=== PATIENT | female | born 1930 | race Caucasian/White ===

== ENCOUNTER 2018-01-01 09:57 | Emergency (ER) | payer MEDICARE ==
[2018-01-01] MEDS ORDERED: Albuterol/Ipratropium NEB.SOL* Albuterol 2.5 MG/Ipratropium 0.5 MG 3 ML INH ONE (11:41)
--- NOTE | 2018-01-01 11:48 | UC ---
Respiratory Complaint HPI - HPI Summary HPI Summary: cough for about a week. She says she is on 3lnc all the time. She has not needed to increase it and says she may be a little more sob this week. she is on warfarin and is compliant with med and INR, this is for Afib. She had a stress test one year ago and sees automotive professional regularly. The cough is productive of white which is normal for her and no hemoptysis. There is some right calf swelling without pain. No fever, cp, jaw pain, shoulder pain or other ischemic equivalents. - History of Current Complaint Chief Complaint: UCRespiratory Stated Complaint: CONGESTION Time Seen by Provider: 01/01/18 10:42 Hx Obtained From: Patient, Family/Vascular Technologist - Estefany. ?: No Onset/Duration: Gradual Onset, Lasting Days Timing: Constant Severity Initially: Mild Severity Currently: Mild Pain Intensity: 0 Character: Cough: Productive Aggravating Factors: Deep Breaths, Recumbent Position Alleviating Factors: Upright Position, Spontaneous Resolution Associated Signs And Symptoms: Positive: Dyspnea, Calf Swelling, URI, Nasal Congestion. Negative: Fever, Chills, Pleuritic Chest Pain, Wheezing, Hemoptysis , Dizziness, Calf Pain - Allergies/Home Medications Allergies/Adverse Reactions: Allergies Allergy/AdvReac Type Severity Reaction Status Date / Time MS Nitroglycerin Allergy Severe Difficulty Verified 01/01/18 11:07 [Nitroglycerin] Breathing MS Kiwi Extract Allergy Intermediate Numbness Verified 01/01/18 11:07 [Kiwi Extract] And Tingling aspirin AdvReac can not Verified 01/01/18 11:08 take more than 81 mg aspirin due hx of GI bleed. Home Medications: Home Medications Albuterol 2.5MG/3ML (0.083%)* [Ventolin 2.5 MG/3 ML NEB.DERICK*] 2.5 mg INH Q4H [History Confirmed 01/01/18] Aspirin EC Low Dose* [Ecotrin EC Low Dose 81 MG*] 81 mg PO DAILY 01/01/18 [ History Confirmed 01/01/18] Atorvastatin* [Lipitor*] 40 mg PO DAILY 01/01/18 [History Confirmed 01/01/18] Calcium Carbonate/Vitamin D3 [Calcium 600 + Vit D Tablet] 1 each PO 01/01/18 [ History] Cholecalciferol (Vitamin D3) [ Vitamin D3] 1,000 unit PO DAILY 01/01/18 [ History Confirmed 01/01/18] Digoxin TAB* [Lanoxin TAB*] 0.125 mg PO DAILY 01/01/18 [History Confirmed ] Ferrous Sulfate TAB* 325 mg PO BID 01/01/18 [History Confirmed 01/01/18] Furosemide TAB* [Lasix TAB*] 40 mg PO DAILY 01/01/18 [History Confirmed 01/01/18 ] Gabapentin CAP(*) [Neurontin 100 mg CAP(*)] 100 mg PO BID 01/01/18 [History Confirmed 01/01/18] Gabapentin CAP(*) [Neurontin 100 mg CAP(*)] 300 mg PO BEDTIME 01/01/18 [History Confirmed 01/01/18] Magnesium Oxide [Magnesium] 1,000 mg PO DAILY 01/01/18 [History Confirmed ] Mometasone/Formoter 100/5 MDI* [Dulera 100/5 MDI*] 2 puff INH BID 01/01/18 [ History Confirmed 01/01/18] Oxygen 3 01/01/18 [History] Pantoprazole Sodium [Protonix] 40 mg PO DAILY 01/01/18 [History Confirmed ] Polyethylene Glycol 3350* [Miralax*] 17 gm PO DAILY 01/01/18 [History Confirmed 01/01/18] Polyvinyl Alcohol/Povidone/Pf [Refresh] 1 zhao OP 01/01/18 [History] Pro Air 01/01/18 [History] Sucralfate TAB* [Carafate*] 1 gm PO TID 01/01/18 [History Confirmed 01/01/18] Tiotropium CAP.INH* [Spiriva CAP.INH*] 1 cap.inh INH DAILY 01/01/18 [History Confirmed 01/01/18] Warfarin TAB(*) [Coumadin TAB(*)] 5 mg PO DAILY 01/01/18 [History Confirmed ] dilTIAZem HCl [Cartia Xt] 180 mg PO DAILY 01/01/18 [History Confirmed 01/01/18] metFORMIN* [Glucophage 500 MG TAB *] 500 mg PO DAILY 01/01/18 [History Confirmed 01/01/18] PMH/Surg Hx/FS Hx/Imm Hx Previously Healthy: No - afib, copd. - Surgical History Surgical History: Yes Surgery Procedure, Year, and Place: GB removed. Cataract 10/2003;. COLONOSCOPY - Family History Known Family History: Positive: Other - no related fh. - Social History Alcohol Use: None Substance Use Type: None Smoking Status (MU): Former Smoker Type: Cigarettes When Did the Patient Quit Smoking/Using Tobacco: 2010 Review of Systems Respiratory: Shortness Of Breath, Cough Musculoskeletal: Edema All Other Systems Reviewed And Are Negative: Yes Physical Exam Triage Information Reviewed: Yes Appearance: Well-Appearing - Appears somewhat chronically ill but speaking in full sentences with some pursed lip breathing in between and is pleasant non toxic., No Pain Distress, Well-Nourished Vital Signs: Initial Vital Signs Temp 98.8 F 01/01/18 11:10 Pulse 96 01/01/18 11:10 Resp 24 01/01/18 11:10 BP 113/46 01/01/18 11:10 Pulse Ox 91 01/01/18 11:10 Vital Signs Reviewed: Yes Eyes: Positive: Conjunctiva Clear. Negative: Conjunctiva Inflamed ENT: Positive: Normal ENT inspection. Negative: Nasal congestion, Tonsillar swelling, Tonsillar exudate, Trismus, Muffled voice Neck: Positive: Supple, Nontender, No Lymphadenopathy. Negative: Nuchal Rigidity Respiratory: Positive: Decreased breath sounds. Negative: Accessory muscle use , Crackles, Rhonchi, Stridor, Wheezing Cardiovascular: Positive: No Murmur, Brisk Capillary Refill. Negative: Tachycardia Abdomen Description: Positive: No Organomegaly, Soft. Negative: Distended, Guarding Musculoskeletal Exam: Other - Right calf 39cm and left is 36.5. neg homans. No venous engourgement. Musculoskeletal: Positive: Strength Intact, ROM Intact Neurological: Positive: Alert, Muscle Tone Normal. Negative: Fatigued Psychological: Positive: Age Appropriate Behavior Skin: Negative: rashes UC Diagnostic Evaluation - Laboratory O2 Sat by Pulse Oximetry: 91 Re-Evaluation - Re-Evaluation First Eval Change: Improved - She feels well now and has been observed for one hour. She is remains comfortable. Respiratory Course/Dx - Course Course Of Treatment: Mild sob and mildly worsened cough. First EKG showed lateral ischemia however we discussed case with Dr. Monreal and got records and most recent EKG from September is unchanged from today. He also points out that she had a cath a few years ago which was normal. She has finding on X ray which was discussed with patient and her neice. They agree to get repeat x ray and it just so happens that they have an appt with fast food crew member for pre op clearance this week and they agree to bring this up with them. - Differential Dx/Diagnosis Differential Diagnosis/HQI/PQRI: Foreign Body, Aspiration, Asthma, Bronchitis, CHF, Pulmonary Edema, Exacerbation Of COPD, Influenza, Laryngitis, Lower Resp Infection, VRE, Pneumothorax, Sinusitis, Tuberculosis Provider Diagnoses: copd exacerbation- acute. right calf swelling. Discharge - Sign-Out/Discharge Documenting (check all that apply): Discharge - Discharge Plan Condition: Good Disposition: HOME Prescriptions: Azithromyxin REY (NF) [Z-Rey (Zithromax) 250 mg tabs #6] 2 tab PO .TODAY, THEN 1 DAILY #6 tab predniSONE TAB* [Deltasone TAB*] 20 mg PO DAILY #15 tab Patient Education Materials: COPD (Chronic Obstructive Pulmonary Disease) (ED) Referrals: Samantha Westfall MD [Primary Care Provider] - 1 Day - Billing Disposition and Condition Condition: GOOD Disposition: HOME
--- NOTE | 2018-01-01 12:18 | RAD ---
INDICATION: Shortness of breath on oxygen. Cough for one week. COPD. Former tobacco use. Atrial fibrillation. COMPARISON: July 04, 2015 CT. July 01, 2013 chest radiograph. TECHNIQUE: Dual energy PA and routine lateral views of the chest were obtained. REPORT: Elevated lung volumes and both diffuse mild prominence of the interstitial markings and patchy rarefaction of the mid to upper lung zone interstitial markings. Mild alveolar consolidation at the medial segment of the RIGHT middle lobe with obscuration of the RIGHT heart margin. Negative for pleural effusion or pneumothorax. Upper normal heart size. Prominent central pulmonary vasculature with peripheral attenuation suspicious for pulmonary arterial hypertension. Unremarkable mediastinal contours. IMPRESSION: 1. Suggestion of inflammatory infiltrate at the medial segment of the RIGHT middle lobe. Radiographic follow-up suggested to assess for resolution and exclude an infrahilar mass. 2. COPD and probable pulmonary arterial hypertension.
[2018-01-01 13:23] VITALS: BP 113/43
== END 2018-01-01 14:01 | disposition home or self-care (01) ==
LOC: UCCORT 09:57
DX: J44.1 Chronic obstructive pulmonary disease with (acute) exacerbation (principal); R22.41 Localized swelling, mass and lump, right lower limb; Z87.891 Personal history of nicotine dependence; Z88.6 Allergy status to analgesic agent; Z88.8 Allergy status to other drugs, medicaments and biological substances
CPT/HCPCS: 71046; 93005; 99213; A9270-GY; G0463

== ENCOUNTER 2018-01-22 15:18 | Emergency (ER) | payer MEDICARE ==
[2018-01-22 15:38] VITALS: BP 117/62
--- NOTE | 2018-01-22 16:08 | UC ---
Epistaxis Nasal HPI - HPI Summary HPI Summary: 87 yo female with right epistaxis on home O2 3 Lnc had nosebleed that lasted 6-7 hours today bleeding recurred about 7 AM stopped about an hour ago after she packed her right nostril feels a little dizzy and light headed now has brisk/profuse bleeding both days ON COUMADIN her INR was high last week - History of Current Complaint Chief Complaint: UCRespiratory Stated Complaint: BLOODY NOSE Time Seen by Provider: 01/22/18 15:43 Hx Obtained From: Patient Onset/Duration: Sudden Onset, Lasting Hours Timing: Constant Severity Initially: Moderate Severity Currently: None Pain Intensity: 4 Pain Scale Used: 0-10 Numeric Character: Heavy Aggravating Factor(s): Nothing Alleviating Factor(s): Pressure, Other - packing - Allergies/Home Medications Allergies/Adverse Reactions: Allergies Allergy/AdvReac Type Severity Reaction Status Date / Time kiwi Allergy Numbness Verified 01/22/18 15:50 And Tingling nitroglycerin Allergy Difficulty Verified 01/22/18 15:50 Breathing aspirin AdvReac can not Verified 01/01/18 11:08 take more than 81 mg aspirin due hx of GI bleed. Home Medications: Home Medications Albuterol inh POWDER (NF) [Proair Respiclick] 2 puff INH Q12HR 01/22/18 [ History Confirmed 01/22/18] PMH/Surg Hx/FS Hx/Imm Hx Previously Healthy: Yes Cardiovascular History: Hypertension, Atrial Fibrillation Respiratory History: COPD Other History Of: Anticoagulant Therapy - Surgical History Surgical History: Yes Surgery Procedure, Year, and Place: CHOLECYSTECTOMY. Cataract 10/2003;. COLONOSCOPY - Family History Known Family History: Positive: Hypertension, Other - no related fh. - Social History Alcohol Use: None Substance Use Type: None Smoking Status (MU): Former Smoker Type: Cigarettes When Did the Patient Quit Smoking/Using Tobacco: 2010 Review of Systems Constitutional: Negative Skin: Negative Eyes: Negative ENT: Epistaxis Respiratory: Negative Cardiovascular: Negative Gastrointestinal: Negative Genitourinary: Negative Motor: Negative Neurovascular: Negative Musculoskeletal: Negative Neurological: Negative Psychological: Negative Is Patient Immunocompromised?: No All Other Systems Reviewed And Are Negative: Yes Physical Exam Triage Information Reviewed: Yes Appearance: Well-Appearing, No Pain Distress, Well-Nourished Vital Signs: Initial Vital Signs Temp 98.7 F 01/22/18 15:29 Pulse 103 01/22/18 15:29 Resp 28 01/22/18 15:29 BP 117/62 01/22/18 15:29 Pulse Ox 90 01/22/18 15:29 Eyes: Positive: Conjunctiva Clear ENT: Positive: Hearing grossly normal, Uvula midline, Other - patient has packed her right nare. Negative: Muffled voice, Hoarse voice, Dental tenderness , Sinus tenderness Neck: Positive: Supple, Nontender Respiratory: Positive: Lungs clear, Normal breath sounds, No respiratory distress, No accessory muscle use Cardiovascular: Positive: Tachycardia. Negative: RRR Musculoskeletal: Positive: ROM Intact, No Edema Neurological: Positive: Alert Skin Exam: Normal Epistaxis Nasal Course/Dx - Course Course Of Treatment: due to possible need for STAT blood work/suction/cautery/ and her co morbid problems especially need of O2 I advised we send her to [facility]. Her nephew is driving. d/w Dr. Jeni Hand - Differential Dx/Diagnosis Provider Diagnoses: epistaxis Discharge - Sign-Out/Discharge Documenting (check all that apply): Discharge - Discharge Plan Condition: Stable Disposition: TRANS HIGHER LVL OF CARE FAC Referrals: Samantha Westfall MD [Primary Care Provider] - Additional Instructions: TO [facility] ER I spoke to Dr. Jeni Hand and they are expecting you - Billing Disposition and Condition Condition: STABLE Disposition: EMTALA
== END 2018-01-22 16:03 | disposition short-term general hospital (02) ==
LOC: UCCORT 15:18
DX: R04.0 Epistaxis (principal); Z79.01 Long term (current) use of anticoagulants; Z88.6 Allergy status to analgesic agent; Z88.8 Allergy status to other drugs, medicaments and biological substances; Z91.018 Allergy to other foods; F17.210 Nicotine dependence, cigarettes, uncomplicated
CPT/HCPCS: 99212; G0463

== ENCOUNTER 2018-03-21 12:19 | Emergency (ER) | payer MEDICARE ==
--- NOTE | 2018-03-21 12:35 | UC ---
Shortness of Breath HPI - HPI Summary HPI Summary: Pleasant 87 yo female brought to [facility] by adult nephew, c/o progressive sob and weakness last 2-3 days. Notes increased BLE edema x several weeks but this has not changed in last couple days. + orthopnea, does wake up at night frequently but does not describe as pnd perse. No recent fever / chills. Denies pain. No GI upset. Stool is dark, to which she attributes iron supple. No brbpr. No report of urinary change. No rash. No LOC. Without new palpitations, she does have hx chronic atrial fibrillation. Recent pneumonia, December 2017; no current abx. Takes several medications, including digoxin, coumadin, metformin , lasix.... - History of Current Complaint Stated Complaint: TROUBLE BREATHING Time Seen by Provider: 03/21/18 12:30 Hx Obtained From: Patient, Family/Solution Design Engineer - Allergy/Home Medications Allergies/Adverse Reactions: Allergies Allergy/AdvReac Type Severity Reaction Status Date / Time kiwi Allergy Numbness Verified 03/21/18 12:44 And Tingling nitroglycerin Allergy Difficulty Verified 03/21/18 12:44 Breathing aspirin AdvReac can not Verified 03/21/18 12:44 take more than 81 mg aspirin due hx of GI bleed. PMH/Surg Hx/FS Hx/Imm Hx Previously Healthy: No - see pmh below, see hpi Other History Of: Anticoagulant Therapy - Surgical History Surgical History: Yes Surgery Procedure, Year, and Place: CHOLECYSTECTOMY. Cataract 10/2003;. COLONOSCOPY - Family History Known Family History: Positive: Hypertension, Other - no related fh. - Social History Alcohol Use: None Substance Use Type: None Smoking Status (MU): Former Smoker Type: Cigarettes When Did the Patient Quit Smoking/Using Tobacco: 2010 Review of Systems Constitutional: Fatigue Skin: Bruising Eyes: Negative ENT: Negative Respiratory: Shortness Of Breath - minimal cough Cardiovascular: Other - see hpi Gastrointestinal: Other - see hpi Genitourinary: Other - see hpi Motor: Other - see hpi Neurovascular: Other - see hpi Musculoskeletal: Other: - see hpi Neurological: Other - see hpi Psychological: Negative Is Patient Immunocompromised?: No All Other Systems Reviewed And Are Negative: Yes Physical Exam Triage Information Reviewed: Yes Appearance: Well-Appearing, Well-Nourished Eye Exam: Other - perrla eomi, + arcus seniles ENT: Positive: Other - a little pale Neck exam: Other - possible jvd (position) arthritic general appearance Respiratory Exam: Other - BS equal, diminished + bb crackles. W/o marbella accessory muscle use Converses in full sentances but needs to stop to catch breath Cardiovascular Exam: Other - HR irreg rhythm, reg rate. Syst murmur. HR correlates with radial pulse Abdomen Description: Positive: Nontender - soft, nondistended. + BS. No back pain c/o's. Musculoskeletal Exam: Other Musculoskeletal: Positive: Edema @ - BLE + 3+ edema. Feet warm. Paucity of hair growth ant tib. Neurological: Positive: Alert - Detailed neurological exam not done. Grossly nonfocal. Moves x 4 ext's. Gait not tested. Psychological Exam: Normal - conversing easily and appropriately. Skin Exam: Other - pale nondiaphoretic. No visible or reported rash. Several areas of bruising noted over arms and abd. Shortness of Breath Dx - Course Course Of Treatment: EKG - 91 bpm atrial fibrillation, low volt. Diffuese repol abnm, severe global ischemia. Similar c/o ekg 01/01/18. O2 sat 88 on 3 L , increased to 40% VM -> 100% sat. D/w Ms. Lou and (with Ms. Lou's permission ) her nephew. Concern for progressive sob, in the setting of several significant comorbidities, including albeit not limited to dm, fluid overload, atrial fib, anticoagulation tx, digoxin tx, recent pneumonia. Encouraged transfer to Emergency Department, Ms. Lou expresses understanding and agreement , and agrees to go to ED via EMS. EMS transport is paramount in this case (c/n exclude mi, fluid overload). Reviewed most recent ekg, cxr, ccc notes as available in [facility]. Ms. Lou reports that most of her care and thus medical records, has been via [facility]. D/w Dr. Ferraro, ED approx 11:55am. BS 124mg / dl here. Questions as posed answered to the best of my ability. - Differential Dx/Diagnosis Provider Diagnoses: Short of breath. Weakness Discharge - Sign-Out/Discharge Documenting (check all that apply): Discharge/Admit/Transfer - transfer via ems - Discharge Plan Condition: Guarded Disposition: TRANS HIGHER LVL OF CARE FAC Referrals: Samantha Westfall MD [Primary Care Provider] - - Billing Disposition and Condition Condition: GUARDED Disposition: Trans Higher Lvl of Care Fac
[2018-03-21 13:09] VITALS: BP 116/63
== END 2018-03-21 13:13 | disposition short-term general hospital (02) ==
LOC: UCCORT 12:19
DX: R06.02 Shortness of breath (principal); R53.1 Weakness; Z88.6 Allergy status to analgesic agent; Z88.8 Allergy status to other drugs, medicaments and biological substances; Z91.018 Allergy to other foods; Z79.01 Long term (current) use of anticoagulants; Z87.891 Personal history of nicotine dependence
CPT/HCPCS: 93005; 99213; G0463

== ENCOUNTER 2018-07-04 11:27 | Emergency (ER) | payer MEDICARE ==
--- NOTE | 2018-07-04 11:32 | UC ---
Shortness of Breath HPI - HPI Summary HPI Summary: 87 yo female presents with increased SOB. She tells me that she has a hx of COPD and is on 3L O2 NC at all times. Her usual O2% is around 91% - per pt. She tells me that over the last 4 days she has felt more short of breath than usual. She has been using her nebulizer twice a day and has good relief with this for a short time. Her last nebulizer was about 5 hours ago. At initial O2% on presentation here was 81% on 3L. Denies fever, chills, chest pain, abdominal pain, n/v. - History of Current Complaint Stated Complaint: TROUBLE BREATHING Time Seen by Provider: 07/04/18 11:31 Hx Obtained From: Patient - Allergy/Home Medications Allergies/Adverse Reactions: Allergies Allergy/AdvReac Type Severity Reaction Status Date / Time kiwi Allergy Numbness Verified 07/04/18 11:38 And Tingling nitroglycerin Allergy Difficulty Verified 07/04/18 11:38 Breathing aspirin AdvReac can not Verified 07/04/18 11:38 take more than 81 mg aspirin due hx of GI bleed. PMH/Surg Hx/FS Hx/Imm Hx Endocrine History: Diabetes Cardiovascular History: Cardiac Disease, Hypertension, Atrial Fibrillation Respiratory History: COPD, Pneumonia GI/ History: Gastroesophageal Reflux Other History Of: Anticoagulant Therapy - Surgical History Surgical History: Yes Surgery Procedure, Year, and Place: CHOLECYSTECTOMY. Cataract 10/2003;. COLONOSCOPY - Family History Known Family History: Positive: Hypertension, Other - no related fh. - Social History Occupation: Retired Lives: With Family Alcohol Use: None Substance Use Type: None Smoking Status (MU): Former Smoker Type: Cigarettes Length of Time of Smoking/Using Tobacco: 1-2 PPD x 50 Years When Did the Patient Quit Smoking/Using Tobacco: 2010 Review of Systems Constitutional: Negative Skin: Negative Eyes: Negative ENT: Negative Respiratory: Shortness Of Breath, Cough Cardiovascular: Negative Gastrointestinal: Negative Neurovascular: Negative Neurological: Negative Psychological: Negative All Other Systems Reviewed And Are Negative: Yes Physical Exam - Summary Physical Exam Summary: GENERAL: NAD. WDWN. No pain distress. SKIN: No rashes, sores, lesions, or open wounds. HEENT: Head: AT/NC Eyes: EOM intact. Conjunctiva clear without inflammation or discharge. Ears: Hearing grossly normal. TMs intact, no bulging, erythema, or edema. Nose: Nasal mucosa pink and moist. NTTP maxillary and frontal sinus. Throat: Posterior oropharynx without exudates, erythema, or tonsillar enlargement. Uvula midline. NECK: Supple. Nontender. No lymphadenopathy. CHEST: Distant breath sounds throughout. No r/r/w. No accessory muscle use. Mild increased work of breathing. CV: Pulses intact. Cap refill <2seconds NEURO: Alert. PSYCH: Age appropriate behavior. Triage Information Reviewed: Yes Vital Signs: Vital Signs 07/04/18 07/04/18 07/04/18 11:39 11:48 13:02 Temperature 97.3 F 98 F Pulse Rate 108 73 100 Respiratory 26 26 24 Rate Blood Pressure 93/43 104/43 108/52 (mmHg) O2 Sat by Pulse 81 91 Oximetry Shortness of Breath Dx - Course Course Of Treatment: In the clinical course, pt was given a duoneb treatment with significant improvement of her breathing. She reports feeling much better and her O2% was up to 91-96%. CXR: IMPRESSION: No active cardiopulmonary disease is noted. Hyperinflated lung silva. She was observed for ~30minutes s/ p nebulizer and her O2% remained at 96%. I walked with the pt 150ft and her O2% averaged 92% with lowest being 88% and highest being 96%. She still felt significantly improved and wishes to be discharged. Will discharge her with levaquin and prednisone and have her f/u with her PCP. - Differential Dx/Diagnosis Provider Diagnoses: SOB. COPD exacerbation Discharge - Sign-Out/Discharge Documenting (check all that apply): Patient Departure All imaging exams completed and their final reports reviewed: Yes - Discharge Plan Condition: Stable Disposition: HOME Prescriptions: Levofloxacin TAB* [Levaquin TAB*] 500 mg PO DAILY #7 tab predniSONE TAB* [Deltasone TAB*] 50 mg PO DAILY #5 tab Patient Education Materials: COPD (Chronic Obstructive Pulmonary Disease) (ED) Referrals: Samantha Westfall MD [Primary Care Provider] - Additional Instructions: If you develop a fever, shortness of breath, chest pain, new or worsening symptoms - please call your PCP or go to the ED. 1) Please have your INR / Coumadin level checked on SATURDAY 07/07 as the antibiotic you are on may interact with your coumadin 2) Use your nebulizer again in 4 hours 3) If your symptoms return or worsen - please call 911 or go to the ER 4) I strongly recommend that you schedule a follow up appointment with your primary doctor for early next week for a recheck - Billing Disposition and Condition Condition: STABLE Disposition: Home - Attestation Statements Provider Attestation: I was available for consult. This patient was seen by the AGUSTIN. The patient was not presented to, seen by, or examined by me. -Cali
[2018-07-04] MEDS ORDERED: Albuterol/Ipratropium NEB.SOL* Albuterol 2.5 MG/Ipratropium 0.5 MG 3 ML INH ONE (11:35)
--- NOTE | 2018-07-04 12:15 | RAD ---
Indication: Shortness of breath. 2 views of the chest including dual energy PA views demonstrates hyperinflated lung silva. No pleural fluid, pneumonia or pneumothorax is noted. No changes noted since December 24, 2017. IMPRESSION: No active cardiopulmonary disease is noted. Hyperinflated lung silva.
[2018-07-04 13:03] VITALS: BP 108/52
== END 2018-07-04 13:04 | disposition home or self-care (01) ==
LOC: UCCORT 11:27
DX: J44.1 Chronic obstructive pulmonary disease with (acute) exacerbation (principal); Z99.81 Dependence on supplemental oxygen; Z88.6 Allergy status to analgesic agent; Z88.8 Allergy status to other drugs, medicaments and biological substances; Z87.891 Personal history of nicotine dependence
CPT/HCPCS: 71046; 99213; A9270-GY; G0463

== ENCOUNTER 2019-05-09 11:11 | Emergency (ER) | payer MEDICARE | END 2019-05-09 11:25 | disposition left against medical advice (07) | LOC: UCCORT 11:11 | DX: R23.3 Spontaneous ecchymoses (principal); Z79.01 Long term (current) use of anticoagulants; Z53.21 Procedure and treatment not carried out due to patient leaving prior to being seen by health care provider ==